=== PATIENT | female | born 1955 | race Caucasian/White ===

== ENCOUNTER 2018-10-03 11:33 | Emergency (ER) | payer MEDICAID ==
--- NOTE | 2018-10-03 12:27 | XRAY Report ---
Reason: pain Procedure Date: 10/03/2018 Accession Number: [id number] / [id number] Procedure: XR - Knee 4 View LT CPT Code: FULL RESULT: EXAM: LEFT KNEE RADIOGRAPHY EXAM DATE: 10/03/2018 12:09 PM. CLINICAL HISTORY: Pain. Patient felt knee buckle while walking. COMPARISON: None. TECHNIQUE: 4 views. FINDINGS: Bones: Normal. No fractures or bone lesions. Joints: Mild medial tibial femoral compartment joint space narrowing and osteophyte formation. Small joint effusion. Soft Tissues: Normal. No soft tissue swelling. IMPRESSION: 1. Small left knee joint effusion. 2. Mild medial tibiofemoral compartment left knee osteoarthritis. RADIA
--- NOTE | 2018-10-03 13:04 | ED Physician Documentation ---
<Sukhjinder Pagan - Last Filed: 10/03/18 13:04> PD HPI LOWER EXT INJURY - Stated complaint Stated Complaint: LEFT KNEE PX - Chief complaint Chief Complaint: Ext Problem - History obtained from History obtained from: Patient PD PAST MEDICAL HISTORY - Past Medical History Past Medical History: Yes Cardiovascular: Hypertension, High cholesterol - Past Surgical History Past Surgical History: Yes Ortho: Knee replacement - Present Medications Home Medications: Ambulatory Orders Medication Instructions Recorded Confirmed Hydrocodone/Acetaminophen 1 each PO Q6H PRN #6 tablet 10/03/18 [Hydrocodon-Acetaminophen 5-325] Ibuprofen [Motrin] 800 mg PO Q8H PRN #30 tablet 10/03/18 RX: Atenolol [Tenormin] 0 10/03/18 RX: Atorvastatin [Lipitor] 0 10/03/18 RX: DULoxetine [Cymbalta] 0 10/03/18 RX: Folic Acid 0 10/03/18 RX: Gabapentin 0 10/03/18 RX: Hydroxychloroquine [Plaquenil] 0 10/03/18 RX: Levothyroxine [Synthroid] 0 10/03/18 RX: Meclizine HCl 0 10/03/18 RX: Omeprazole 0 10/03/18 RX: Sulfasalazine [Azulfidine] 0 10/03/18 RX: traZODone [Desyrel] 0 10/03/18 hydroCHLOROthiazide 0 10/03/18 [Hydrochlorothiazide] - Allergies Allergies/Adverse Reactions: Allergies Allergy/AdvReac Type Severity Reaction Status Date / Time codeine Allergy Hives Verified 10/03/18 11:43 Penicillins Allergy Hives Verified 10/03/18 11:43 Sulfa (Sulfonamide Allergy Hives Verified 10/03/18 11:43 Antibiotics) - Social History Does the pt smoke?: No Smoking Status: Never smoker Does the pt drink ETOH?: Yes Does the pt have substance abuse?: No - POLST Patient has POLST: No Results - Vitals Vitals: Vital Signs - 24 hr 10/03/18 11:40 Temperature 36.2 C L Heart Rate 75 Respiratory 18 Rate Blood Pressure 145/69 H O2 Saturation 100 Oxygen O2 Source Room air Departure - Departure Disposition: 01 Home, Self Care Clinical Impression: Arthritis Condition: Stable Instructions: ANTI-INFLAMMATORY, General, ED Degenerative Joint Disease, ED Effusion Knee Prescriptions: Hydrocodone/Acetaminophen [Hydrocodon-Acetaminophen 5-325] 1 each PO Q6H PRN #6 tablet PRN Reason: pain Ibuprofen [Motrin] 800 mg PO Q8H PRN #30 tablet PRN Reason: PAIN &/OR FEVER Comments: Take the prescribed medications. When taking Motrin make sure you take it with food. When taking the hydrocodone please maintain safety. No alcohol no driving with narcotics. He might get constipated from the hydrocodone so she drink lots of water, eat high-fiber foods and take agog-[id number]-zhlhblg stool softener. Call your primary doctor and get a referral for an orthopedic surgeon in the area. Elevate your left leg to decrease the swelling. You may use the Joshua wrap for support. You may use crutches, cane or walker for support as needed. You may apply warm compresses as needed. If worse return to the emergency room. <ErickaAgueda - Last Filed: 10/03/18 13:28> PD HPI LOWER EXT INJURY - History obtained from History obtained from: Patient - History of Present Illness PD HPI LOW EXT INJURY LOCATION: Left, Knee Where injury occurred: Home Timing - onset: How many months ago (2) Timing - duration: Months (2) Timing - details: Gradual onset, Still present, Intermittant Pain level max: 10 Pain level now: 10 Improved by: Rest Worsened by: Moving Associated symptoms: Swelling. No: Weakness, Numbness, Tingling Contributing factors: No: Anticoagulated, Prior ortho surgery Similar symptoms before: Diagnosis (Osteoarthritis) Recently seen: Not recently seen - Additional information Additional information: 63-year-old female with history of hypertension, right knee replacement, osteoarthritis of the left knee here with complaint of worsening left knee pain the past 2 months. She stated today that was worse. She denies any trauma such as falling or twisting. She has not taken any pain medication at home. Review of Systems Ten Systems: 10 systems reviewed and negative Constitutional: denies: Fever, Myalgias Musculoskeletal: reports: Extremity pain, Extremity swelling, Pain with weight bearing. denies: Back pain Neurologic: denies: Focal weakness, Numbness PD ED PE NORMAL - Vitals Vital signs reviewed: Yes - General General: Alert and oriented X 3, No acute distress, Well developed/nourished - HEENT HEENT: Moist mucous membranes - Neck Neck: Supple, no meningeal sign - Cardiac Cardiac: RRR, Strong equal pulses - Respiratory Respiratory: No respiratory distress - Abdomen Abdomen: Soft, Non tender, Non distended - Back Back: No CVA TTP, No spinal TTP - Derm Derm: Warm and dry - Extremities Extremities: No deformity, No edema, No calf tenderness / cord, Other (Left knee mildly swollen especially at the lower aspect of the patella. This swollen area is tender to touch. Positive discomfort expressed with range of motion. Sensation intact. Strength 5/5. Pulses +2 throughout. Temperature normal. Capillary refill less than 2 seconds.) - Neuro Neuro: Alert and oriented X 3, Normal speech - Psych Psych: Normal mood, Normal affect PD MEDICAL DECISION MAKING - ED course Complexity details: reviewed results, considered differential (Knee effusion, knee strain, ligamentous injury, osteoarthritis), d/w patient (Patient inform of x-ray result. She informed me that her orthopedic doctor told her that she will be requiring left knee replacement. She was informed about this 5 years ago. Patient had moved from another area and. here through her PCP. Patient states that she cannot tolerate hydrocodone and Motrin.)
[2018-10-03] MEDS ORDERED: HYDROcod/ACETAM 5/325 MG TABLET PO STA (13:16)
[2018-10-03] MEDS ORDERED: IBUPROFEN 600 MG TABLET PO STA (13:17)
--- NOTE | 2018-10-03 13:34 | ED Physician Documentation ---
PD HPI LOWER EXT INJURY - Stated complaint Stated Complaint: LEFT KNEE PX - Chief complaint Chief Complaint: Ext Problem - History obtained from History obtained from: Patient - History of Present Illness PD HPI LOW EXT INJURY LOCATION: Left, Knee Where injury occurred: Home Timing - onset: How many months ago (2) Timing - duration: Months (2) Timing - details: Gradual onset, Still present Pain level max: 7 Pain level now: 7 Improved by: Rest Worsened by: Moving Associated symptoms: Swelling. No: Weakness, Numbness, Tingling, Discolored Contributing factors: No: Prior ortho surgery Similar symptoms before: Work up / diagnostics (Was told 5 years ago she has arthritis) Recently seen: Not recently seen - Additional information Additional information: 63-year-old female with history of hypertension and osteoarthritis with right knee replacement 2 years ago here with complaint of left knee pain the past 2 months. Patient denies any trauma, travel or twisting injury. Review of Systems Ten Systems: 10 systems reviewed and negative Constitutional: denies: Fever, Myalgias Musculoskeletal: reports: Extremity pain, Joint swelling, Pain with weight bearing. denies: Back pain Neurologic: denies: Focal weakness, Numbness PD PAST MEDICAL HISTORY - Past Medical History Past Medical History: Yes Cardiovascular: Hypertension, High cholesterol - Past Surgical History Past Surgical History: Yes Ortho: Knee replacement - Present Medications Home Medications: Ambulatory Orders Medication Instructions Recorded Confirmed Atenolol [Tenormin] 0 10/03/18 Atorvastatin [Lipitor] 0 10/03/18 DULoxetine [Cymbalta] 0 10/03/18 Folic Acid 0 10/03/18 Gabapentin 0 10/03/18 Hydrocodone/Acetaminophen 1 each PO Q6H PRN #6 tablet 10/03/18 [Hydrocodon-Acetaminophen 5-325] Hydroxychloroquine [Plaquenil] 0 10/03/18 Ibuprofen [Motrin] 800 mg PO Q8H PRN #30 tablet 10/03/18 Levothyroxine [Synthroid] 0 10/03/18 Meclizine HCl 0 10/03/18 Omeprazole 0 10/03/18 Sulfasalazine [Azulfidine] 0 10/03/18 hydroCHLOROthiazide 0 10/03/18 [Hydrochlorothiazide] traZODone [Desyrel] 0 10/03/18 - Allergies Allergies/Adverse Reactions: Allergies Allergy/AdvReac Type Severity Reaction Status Date / Time codeine Allergy Hives Verified 10/03/18 11:43 Penicillins Allergy Hives Verified 10/03/18 11:43 Sulfa (Sulfonamide Allergy Hives Verified 10/03/18 11:43 Antibiotics) - Social History Does the pt smoke?: No Smoking Status: Never smoker Does the pt drink ETOH?: Yes Does the pt have substance abuse?: No - POLST Patient has POLST: No PD ED PE NORMAL - General General: Alert and oriented X 3, No acute distress, Well developed/nourished - Neck Neck: Supple, no meningeal sign - Cardiac Cardiac: RRR, Strong equal pulses - Respiratory Respiratory: No respiratory distress - Abdomen Abdomen: Soft, Non tender - Back Back: No CVA TTP, No spinal TTP - Derm Derm: Warm and dry - Extremities Extremities: No deformity, No edema, Other (Left knee with mild swelling below the left patella is tender to palpation. No erythema. Sensation intact. Temperature normal. + 2 pulses. Capillary refill less than 2 seconds. Strength 5/5.) - Neuro Neuro: Alert and oriented X 3, No motor deficit, No sensory deficit - Psych Psych: Normal mood, Normal affect Results - Vitals Vitals: Vital Signs - 24 hr 10/03/18 11:40 Temperature 36.2 C L Heart Rate 75 Respiratory 18 Rate Blood Pressure 145/69 H O2 Saturation 100 Oxygen O2 Source Room air PD MEDICAL DECISION MAKING - ED course Complexity details: reviewed results, considered differential (Knee effusion, osteoarthritis, strain), d/w patient (Patient informed of x-ray results. Discussed R.I.C.E., Motrin and safety when taking hydrocodone. She will follow- up with her primary doctor for referral to a local orthopedic doctor.) Departure - Departure Disposition: 01 Home, Self Care Clinical Impression: Arthritis Condition: Stable Instructions: ED Effusion Knee, ANTI-INFLAMMATORY, General, ED Degenerative Joint Disease Prescriptions: Hydrocodone/Acetaminophen [Hydrocodon-Acetaminophen 5-325] 1 each PO Q6H PRN #6 tablet PRN Reason: pain Ibuprofen [Motrin] 800 mg PO Q8H PRN #30 tablet PRN Reason: PAIN &/OR FEVER Comments: Take the prescribed medications. When taking Motrin make sure you take it with food. When taking the hydrocodone please maintain safety. No alcohol no driving with narcotics. He might get constipated from the hydrocodone so she dr ink lots of water, eat high-fiber foods and take [id number] stool softener. Call your primary doctor and get a referral for an orthopedic surgeon in the area. Elevate your left leg to decrease the swelling. You may use the Joshua wrap for support. You may use crutches, cane or walker for support as needed. You may apply warm compresses as needed. If worse return to the emergency room.
[2018-10-03 13:58] VITALS: BP 147/97
== END 2018-10-03 13:58 | disposition home or self-care (01) ==
LOC: ED 11:33
DX: M17.12 Unilateral primary osteoarthritis, left knee (principal); M25.462 Effusion, left knee; I10 Essential (primary) hypertension
CPT/HCPCS: 73564; 99283; A9270

== ENCOUNTER 2019-04-04 15:28 | Outpatient (CLI) | payer MEDICAID ==
--- NOTE | 2019-04-04 16:01 | XRAY Report ---
Reason: 5TH METACARPAL,SCAPHOID PAIN S/P FALL Procedure Date: 04/04/2019 Accession Number: [id number] / [id number] Procedure: XR - Wrist 2 View RT CPT Code: FULL RESULT: EXAM: RIGHT WRIST RADIOGRAPHY EXAM DATE: 04/04/2019 03:35 PM. CLINICAL HISTORY: 5TH METACARPAL,SCAPHOID PAIN S/P FALL. COMPARISON: KNEE 4 VIEW LT 10/03/2018 12:02 PM. TECHNIQUE: 2 views. FINDINGS: Bones: Fracture at the base of the fifth metacarpal. Joints: Normal. No subluxations. Soft Tissues: Normal. No soft tissue swelling. IMPRESSION: Fracture at the base of the fifth metacarpal. RADIA
--- NOTE | 2019-04-04 16:09 | XRAY Report ---
Reason: 5TH METACARPAL,SCAPHOID PAIN S/P FALL Procedure Date: 04/04/2019 Accession Number: [id number] / [id number] Procedure: XR - Hand 2 View RT CPT Code: FULL RESULT: EXAM: RIGHT HAND RADIOGRAPHY EXAM DATE: 04/04/2019 03:35 PM. CLINICAL HISTORY: 5th metacarpal, scaphoid pain after a fall. COMPARISON: None. TECHNIQUE: 2 views. FINDINGS: Bones: There is a minimally displaced fracture at the base of the fifth metacarpal, only seen on the AP view. It is unclear whether the base of the fourth metacarpal is also fractured. Joints: Normal. No subluxations. Soft Tissues: Soft tissue swelling is seen along the base of the fifth metacarpal. IMPRESSION: Fracture at the base of the fifth metacarpal. RADIA
== END 2019-04-04 15:29 | disposition home or self-care (01) ==
LOC: DI 15:28
PROVIDERS: ATTEND Internal Medicine
DX: S62.316A Displaced fracture of base of fifth metacarpal bone, right hand, initial encounter for closed fracture (principal)

== ENCOUNTER 2020-10-02 07:30 | Outpatient (CLI) | payer MEDICAID ==
[2020-10-02 13:05] LABS: BASOPHILS # (AUTO) 0.1 10^3/uL (0.0-0.1); BASOPHILS % (AUTO) 0.7 %; EOSINOPHILS # (AUTO) 0.2 10^3/uL (0.0-0.7); EOSINOPHILS % (AUTO) 3.3 %; HGB - HEMOGLOBIN 12.5 g/dL (12.0-16.0); LYMPHOCYTES % (AUTO) 41.6 %; MEAN CORPUSCULAR HGB CONC 31.5 g/dL (32.0-36.0); MEAN CORPUSCULAR VOLUME 88.8 fL (81.0-99.0); MEAN PLATELET VOLUME 11.2 fL (7.9-10.8); MONOCYTES # (AUTO) 0.4 10^3/uL (0.0-1.0); MONOCYTES % (AUTO) 5.6 %; NEUTROPHILS # (AUTO) 3.5 10^3/uL (1.5-6.6); NEUTROPHILS % (AUTO) 48.5 %; PLT - PLATELET COUNT 265 10^3/uL (130-450); RED BLOOD COUNT 4.47 10^6/uL (4.20-5.40); RED CELL DISTRIBUTION WIDTH 15.5 % (12.0-15.0); WHITE BLOOD COUNT 7.3 x10^3/uL (4.8-10.8)
[2020-10-02 13:35] LABS: ALBUMIN 3.8 g/dL (3.2-5.5); ALBUMIN/GLOBULIN RATIO 1.3 (1.0-2.2); BILIRUBIN,TOTAL 0.5 mg/dL (0.2-1.0); CALCIUM 9.1 mg/dL (8.5-10.3); CREATININE 0.8 mg/dL (0.4-1.0); CRP - C-REACTIVE PROTEIN 1.1 mg/dL (0-1.0); TOTAL PROTEIN 6.7 g/dL (6.7-8.2); URIC ACID 5.2 mg/dL (2.6-7.2)
[2020-10-02 13:41] LABS: THYROID STIMULATING HORMONE 4.2 uIU/mL (0.34-5.60)
[2020-10-02 13:42] LABS: FREE T3 2.82 pg/mL (2.5-3.9)
[2020-10-02 13:46] LABS: FREE T4 (FREE THYROXINE) 1.15 ng/dL (0.58-1.64)
[2020-10-02 14:17] LABS: RHEUMATOID FACTOR NEGATIVE (Negative)
== END 2020-10-02 23:59 | disposition home or self-care (01) ==
LOC: LAB.WCP 07:30
PROVIDERS: ATTEND Family Medicine
DX: I10 Essential (primary) hypertension (principal); E03.9 Hypothyroidism, unspecified; K21.9 Gastro-esophageal reflux disease without esophagitis; G47.9 Sleep disorder, unspecified; F41.8 Other specified anxiety disorders; M06.9 Rheumatoid arthritis, unspecified; M51.36 Other intervertebral disc degeneration, lumbar region
CPT/HCPCS: 36415; 80050; 84439; 84481; 84550; 85651; 86140; 86430

== ENCOUNTER 2021-06-02 14:04 | Outpatient (CLI) | payer MEDICAID | END 2021-06-02 23:59 | disposition home or self-care (01) | LOC: LAB.N 14:04 | PROVIDERS: ATTEND Emergency Medicine | DX: L03.314 Cellulitis of groin (principal) | CPT/HCPCS: 87070; 87205 ==

== ENCOUNTER 2022-01-05 10:04 | Outpatient (CLI) | payer OTHER ==
[2022-01-05 11:50] LABS: BASOPHILS % (AUTO) 0.6 %; EOSINOPHILS # (AUTO) 0.3 10^3/uL (0.0-0.7); EOSINOPHILS % (AUTO) 4.2 %; HCT - HEMATOCRIT 39.1 % (37.0-47.0); HGB - HEMOGLOBIN 12.6 g/dL (12.0-16.0); LYMPHOCYTES # (AUTO) 2.3 10^3/uL (1.5-3.5); LYMPHOCYTES % (AUTO) 34.7 %; MEAN CORPUSCULAR HEMOGLOBIN 29.6 pg (27.0-31.0); MEAN CORPUSCULAR HGB CONC 32.2 g/dL (32.0-36.0); MEAN CORPUSCULAR VOLUME 91.8 fL (81.0-99.0); MEAN PLATELET VOLUME 10.7 fL (7.9-10.8); MONOCYTES # (AUTO) 0.4 10^3/uL (0.0-1.0); MONOCYTES % (AUTO) 6.1 %; NEUTROPHILS # (AUTO) 3.6 10^3/uL (1.5-6.6); NEUTROPHILS % (AUTO) 54.1 %; PLT - PLATELET COUNT 273 10^3/uL (130-450); RED BLOOD COUNT 4.26 10^6/uL (4.20-5.40); RED CELL DISTRIBUTION WIDTH 14.9 % (12.0-15.0); WHITE BLOOD COUNT 6.7 x10^3/uL (4.8-10.8)
[2022-01-05 12:56] LABS: ALBUMIN 4.3 g/dL (3.2-5.5); ALBUMIN/GLOBULIN RATIO 1.5 (1.0-2.2); ALKALINE PHOSPHATASE 62 IU/L (42-121); ALT ALANINE AMINOTRANSFERASE 15 IU/L (10-60); AST ASPARTATE AMINOTRANSFERASE 21 IU/L (10-42); BILIRUBIN,TOTAL 0.4 mg/dL (0.2-1.0); BUN - BLOOD UREA NITROGEN 20 mg/dL (6-20); CALCIUM 9.6 mg/dL (8.5-10.3); CARBON DIOXIDE - CO2 30 mmol/L (21-32); CHLORIDE 98 mmol/L (101-111); CHOL/HDL RATIO 2.7 (<4.4); CHOLESTEROL 205 mg/dL; CREATININE 0.8 mg/dL (0.4-1.0); GFR - MDRD 72 (>89); GLUCOSE 112 mg/dL (70-100); HDL CHOLESTEROL 75 mg/dL; LDL CHOLESTEROL,CALCULATED 87 mg/dL; LDL/HDL RATIO 1.2 (<4.4); POTASSIUM 3.9 mmol/L (3.5-5.0); SODIUM 139 mmol/L (135-145); TOTAL PROTEIN 7.2 g/dL (6.7-8.2); TRIGLYCERIDES 216 mg/dL; VLDL CHOLESTEROL 43 mg/dL
[2022-01-05 13:04] LABS: ESTIMATED AVERAGE GLUCOSE 108 mg/dL (70-100); HEMOGLOBIN A1c% 5.4 % (4.27-6.07)
[2022-01-05 13:07] LABS: THYROID STIMULATING HORMONE 5.85 uIU/mL (0.34-5.60)
[2022-01-05 13:44] LABS: FREE T4 (FREE THYROXINE) 1.01 ng/dL (0.58-1.64)
== END 2022-01-05 10:05 | disposition home or self-care (01) ==
LOC: LAB.N 10:04
PROVIDERS: ATTEND Nurse Practitioner Family
DX: I10 Essential (primary) hypertension (principal); Z13.21 Encounter for screening for nutritional disorder; Z13.1 Encounter for screening for diabetes mellitus; E03.9 Hypothyroidism, unspecified
CPT/HCPCS: 36415; 80053; 80061; 82306; 83036; 83721; 84439; 84443; 85025

== ENCOUNTER 2022-04-13 15:34 | Outpatient (CLI) | payer MEDICARE ==
[2022-04-13 18:31] LABS: THYROID STIMULATING HORMONE 2.23 uIU/mL (0.34-5.60)
== END 2022-04-13 15:35 | disposition home or self-care (01) ==
LOC: LAB.N 15:34
PROVIDERS: ATTEND Nurse Practitioner Family
DX: E03.9 Hypothyroidism, unspecified (principal)
CPT/HCPCS: 36415; 84443

== ENCOUNTER 2022-11-17 15:14 | Outpatient (CLI) | payer MEDICARE ==
[2022-11-17 15:33] LABS: BASOPHILS # (AUTO) 0.1 10^3/uL (0.0-0.1); BASOPHILS % (AUTO) 0.8 %; EOSINOPHILS # (AUTO) 0.4 10^3/uL (0.0-0.7); EOSINOPHILS % (AUTO) 6.3 %; HGB - HEMOGLOBIN 11.8 g/dL (12.0-16.0); LYMPHOCYTES # (AUTO) 2.3 10^3/uL (1.5-3.5); LYMPHOCYTES % (AUTO) 34.7 %; MEAN CORPUSCULAR HEMOGLOBIN 28.4 pg (27.0-31.0); MEAN CORPUSCULAR HGB CONC 31.9 g/dL (32.0-36.0); MEAN CORPUSCULAR VOLUME 89.2 fL (81.0-99.0); MEAN PLATELET VOLUME 9.7 fL (7.9-10.8); MONOCYTES # (AUTO) 0.4 10^3/uL (0.0-1.0); MONOCYTES % (AUTO) 5.6 %; NEUTROPHILS # (AUTO) 3.5 10^3/uL (1.5-6.6); NEUTROPHILS % (AUTO) 52.1 %; PLT - PLATELET COUNT 282 10^3/uL (130-450); RED BLOOD COUNT 4.15 10^6/uL (4.20-5.40); RED CELL DISTRIBUTION WIDTH 14.7 % (12.0-15.0); WHITE BLOOD COUNT 6.7 x10^3/uL (4.8-10.8)
[2022-11-17 15:42] LABS: ALBUMIN 4.1 g/dL (3.2-5.5); ALBUMIN/GLOBULIN RATIO 1.2 (1.0-2.2); BILIRUBIN,TOTAL 0.5 mg/dL (0.2-1.0); CALCIUM 9.7 mg/dL (8.5-10.3); CREATININE 0.8 mg/dL (0.4-1.0); POTASSIUM 3.8 mmol/L (3.5-5.0); TOTAL PROTEIN 7.4 g/dL (6.7-8.2)
--- NOTE | 2022-11-17 17:31 | XRAY Report ---
PROCEDURE: Hand 3 View LT INDICATIONS: HAND PAIN TECHNIQUE: 3 views of the hand(s) acquired. COMPARISON: None FINDINGS: Bones: No acute fractures or dislocations. Likely old injury involving ulnar styloid with well-nay icated fragment. Mild to moderate osteoarthritic changes are noted in left hand and wrist joints with joint space narrowing and subchondral sclerosis most notably at first CMC joint. No gross bony erosi ve changes. No suspicious bony lesions. Soft tissues: No suspicious soft tissue calcifications. IMPRESSION: Mild to moderate left hand and wrist joint osteoarthritis. No acute fracture or dislocation. No defin ite bony erosive changes. Reviewed by: Elier Damon MD on 11/17/2022 5:30 PM PST Approved by: Elier Damon MD on 11/17/2022 5:30 PM PST Station ID: [id number]
--- NOTE | 2022-11-17 17:35 | XRAY Report ---
PROCEDURE: Chest 2 View X-Ray INDICATIONS: PNEUMONIA TECHNIQUE: 2 views of the chest were acquired. COMPARISON: None FINDINGS: Surgical changes and devices: None. Lungs and pleura: No pleural effusions or pneumothorax. Lungs are clear. Mediastinum: Mediastinal contours are normal. Heart size is enlarged. Bones and chest wall: No suspicious bony abnormalities. Soft tissues appear unremarkable. IMPRESSION: No acute cardiopulmonary pathology. Reviewed by: Elier Damon MD on 11/17/2022 5:33 PM [facility] Approved by: Elier Damon MD on 11/17/2022 5:33 PM [facility] Station ID: [id number]
== END 2022-11-17 15:15 | disposition home or self-care (01) ==
LOC: DI 15:14
PROVIDERS: ATTEND Nurse Practitioner
DX: R07.81 Pleurodynia (principal); M19.042 Primary osteoarthritis, left hand; M19.032 Primary osteoarthritis, left wrist
CPT/HCPCS: 36415; 80053; 85025

== ENCOUNTER 2023-08-17 14:35 | Outpatient (CLI) | payer MEDICARE ==
[2023-08-17 17:45] LABS: BASOPHILS # (AUTO) 0.1 10^3/uL (0.0-0.1); BASOPHILS % (AUTO) 0.7 %; EOSINOPHILS # (AUTO) 0.4 10^3/uL (0.0-0.7); EOSINOPHILS % (AUTO) 4.5 %; HGB - HEMOGLOBIN 11.7 g/dL (12.0-16.0); LYMPHOCYTES # (AUTO) 2.5 10^3/uL (1.5-3.5); LYMPHOCYTES % (AUTO) 30.2 %; MEAN CORPUSCULAR HEMOGLOBIN 28.8 pg (27.0-31.0); MEAN CORPUSCULAR HGB CONC 31.6 g/dL (32.0-36.0); MEAN CORPUSCULAR VOLUME 91.1 fL (81.0-99.0); MEAN PLATELET VOLUME 10.6 fL (7.9-10.8); MONOCYTES # (AUTO) 0.4 10^3/uL (0.0-1.0); MONOCYTES % (AUTO) 5.2 %; NEUTROPHILS # (AUTO) 4.8 10^3/uL (1.5-6.6); NEUTROPHILS % (AUTO) 58.8 %; PLT - PLATELET COUNT 288 10^3/uL (130-450); RED BLOOD COUNT 4.06 10^6/uL (4.20-5.40); WHITE BLOOD COUNT 8.1 x10^3/uL (4.8-10.8)
[2023-08-17 18:09] LABS: ALBUMIN 4.4 g/dL (3.2-5.5); ALBUMIN/GLOBULIN RATIO 1.8 (1.0-2.2); ALKALINE PHOSPHATASE 53 IU/L (42-121); ALT ALANINE AMINOTRANSFERASE 10 IU/L (10-60); AST ASPARTATE AMINOTRANSFERASE 17 IU/L (10-42); BILIRUBIN,TOTAL 0.4 mg/dL (0.2-1.0); BUN - BLOOD UREA NITROGEN 20 mg/dL (6-20); CALCIUM 9.8 mg/dL (8.5-10.3); CARBON DIOXIDE - CO2 32 mmol/L (21-32); CHLORIDE 102 mmol/L (101-111); CHOL/HDL RATIO 2.7 (<4.4); CHOLESTEROL 189 mg/dL; CREATININE 0.9 mg/dL (0.6-1.3); GFR - MDRD 62 (>89); GLUCOSE 95 mg/dL (74-104); HDL CHOLESTEROL 69 mg/dL; LDL CHOLESTEROL,CALCULATED 73 mg/dL; LDL/HDL RATIO 1.1 (<4.4); SODIUM 140 mmol/L (135-145); TOTAL PROTEIN 6.9 g/dL (6.4-8.9); TRIGLYCERIDES 233 mg/dL (48-352); VLDL CHOLESTEROL 47 mg/dL
[2023-08-17 18:12] LABS: THYROID STIMULATING HORMONE 2.21 uIU/mL (0.34-5.60)
[2023-08-17 18:50] LABS: ESTIMATED AVERAGE GLUCOSE 114 mg/dL (70-100); HEMOGLOBIN A1c% 5.6 % (4.27-6.07)
== END 2023-08-17 14:36 | disposition home or self-care (01) ==
LOC: LAB.N 14:35
PROVIDERS: ATTEND Nurse Practitioner Family
DX: I10 Essential (primary) hypertension (principal); E03.9 Hypothyroidism, unspecified; E78.5 Hyperlipidemia, unspecified; Z13.1 Encounter for screening for diabetes mellitus
CPT/HCPCS: 36415; 80053; 80061; 83036; 83721; 84443; 85025

== ENCOUNTER 2023-11-14 15:12 | Outpatient (CLI) | payer MEDICARE ==
--- NOTE | 2023-11-14 16:52 | DEXA Report ---
PROCEDURE: Dexa Spine and/or Hip INDICATIONS: OSTEOPOROSIS TECHNIQUE: Dual energy x-ray absorptiometry (DXA) was performed on a [employer] System. Regions measur ed are the AP Spine, femoral neck, and if needed forearm. COMPARISON: 02/08/2022 FINDINGS: Lumbar Spine: Bone Mineral Density 0.961 g/cm/cm,T score -1.8. Since the most recent prior study, there has been a statistically significant increase in bone mineral density by 6.3 percent. Left Femoral Neck: Bone Mineral Density 0.687 g/cm/cm, T score -2.5. Left Hip: Bone Mineral Density 0.809 g/cm/cm,T score -1.6. There has been no statistically significant change i n bone mineral density since the prior study. (T score greater or equal to -1.0: NORMAL) (T score from -1.1 to -2.4: OSTEOPENIA) (T score less than or equal to -2.5 to: OSTEOPOROSIS) Impression: By WHO criteria, this patient has osteoporosis. Interval statistical increase in bone minteral density of the lumbar spine. No statistical interval c hange in bone minteral density of the hip. Patients with diagnosis of osteoporosis or osteopenia should have regular bone mineral density assess ment. For those eligible for Medicare, routine testing is allowed once every 2 years. Testing frequ ency can be increased for patients who have rapidly progressing disease or for those who are receivin g medical therapy to restore bone mass. Reviewed by: Bud Lu MD on 11/14/2023 4:51 PM PST Approved by: Bud Lu MD on 11/14/2023 4:51 PM PST Station ID: [id number]
== END 2023-11-14 15:13 | disposition home or self-care (01) ==
LOC: DI 15:12
PROVIDERS: ATTEND Nurse Practitioner Family
DX: M81.0 Age-related osteoporosis without current pathological fracture (principal)

== ENCOUNTER 2024-07-10 13:25 | Outpatient (CLI) | payer MEDICARE ==
--- NOTE | 2024-07-10 15:10 | XRAY Report ---
PROCEDURE: Knee 4+V LT INDICATIONS: PAIN IN KNEE TECHNIQUE: 5 views of the knee(s) were acquired. COMPARISON: None. FINDINGS: Bones: No fractures or dislocations. No suspicious bony lesions. There is severe tricompartmental osteoarthritic degenerative change involving the patient's left knee with the medial and patellofemoral joints being most severely affected. There are some small ossific loose bodies within the posterior knee joint. Soft tissues: No knee joint effusion. No suspicious soft tissue calcifications or masses. IMPRESSION: 1. No evidence for acute osseous abnormality involving the left knee. 2. Severe tricompartmental osteoarthritic type degenerative change with the medial and patellofemoral joints most severely affected. 3. Small ossific loose bodies posterior knee joint. Reviewed by: Ramakrishna Cowan MD on 07/10/2024 3:09 PM PDT Approved by: Ramakrishna Cowan MD on 07/10/2024 3:09 PM PDT Station ID: [id number]
== END 2024-07-10 13:26 | disposition home or self-care (01) ==
LOC: DI.N 13:25
PROVIDERS: ATTEND Nurse Practitioner Family
DX: M17.12 Unilateral primary osteoarthritis, left knee (principal); M23.42 Loose body in knee, left knee